=== PATIENT | female | born 1955 | race Caucasian/White ===

== ENCOUNTER → 2016-11-29 | Outpatient (CLI) | payer BC | LOC: LAB 14:26 | DX: E03.8 Other specified hypothyroidism (principal) | CPT/HCPCS: 36415; 84443 ==

== ENCOUNTER → 2017-01-23 | Outpatient (CLI) | payer BC ==
[2017-01-23 15:40] LABS: HEMOGLOBIN 13.7 gm/dl (12.3-15.3); RED BLOOD COUNT 4.73 M/UL (4.00-5.10); WHITE BLOOD COUNT 13.5 K/UL (4.5-11.0)
== END ==
LOC: LAB 15:20
PROVIDERS: Emergency Medicine
DX: E03.9 Hypothyroidism, unspecified (principal); E78.2 Mixed hyperlipidemia; E79.0 Hyperuricemia without signs of inflammatory arthritis and tophaceous disease; G44.89 Other headache syndrome; H61.22 Impacted cerumen, left ear; M25.562 Pain in left knee; R23.8 Other skin changes
CPT/HCPCS: 36415; 80053; 85027

== ENCOUNTER → 2020-08-30 | Outpatient (CLI) | payer BC ==
[~2020-08-30] MED LIST: BIOTIN1 M1 PO; ECOTRIN81 MG PO; K-DUR TAB 20 M20 MEQ PO; LIPITOR TAB 1010 MG PO; SYNTHROID25 MCG PO; VITAMIN D2000 UNIT PO; WOMEN'S DAILY1 EACH PO
[2020-09-01 12:14] LABS: CHOLESTEROL, TOTAL 172 mg/dL (100-199); HDL SIZE 9.1 nm (>=9.2); HDL-C 60 mg/dL (>39); HDL-P (TOTAL) 40.7 umol/L (>=30.5); LARGE HDL-P 7.8 umol/L (>=4.8); LARGE VLDL-P 9.4 nmol/L (<=2.7); LDL SIZE 20.3 nm (>20.5); LDL SIZE 20.3 nm (>=20.8); LDL-C 83 mg/dL (0-99); LDL-P 872 nmol/L (<1000); LP-IR SCORE 62 (<=45); SMALL LDL-P 501 nmol/L (<=527); TRIGLYCERIDES 175 mg/dL (0-149); VLDL SIZE 54.8 nm (<=46.6)
== END ==
LOC: LAB 07:42
PROVIDERS: Emergency Medicine
DX: E78.2 Mixed hyperlipidemia (principal); E55.9 Vitamin D deficiency, unspecified
CPT/HCPCS: 36415; 80053

== ENCOUNTER → 2021-04-25 | Outpatient (CLI) | payer BC ==
[2021-04-25 09:55] LABS: RED BLOOD COUNT 4.87 M/UL (4.00-5.10); WHITE BLOOD COUNT 17.2 K/UL (4.5-11.0)
== END ==
LOC: LAB 09:33
PROVIDERS: Emergency Medicine
DX: E78.2 Mixed hyperlipidemia (principal); R60.0 Localized edema; E03.8 Other specified hypothyroidism; D72.828 Other elevated white blood cell count
CPT/HCPCS: 36415; 80053; 80061; 84443; 85027

== ENCOUNTER → 2021-10-04 | Outpatient (CLI) | payer BC ==
[2021-10-04 08:57] LABS: RED BLOOD COUNT 4.71 M/UL (4.00-5.10)
[2021-10-05 08:15] LABS: ALBUMIN 4.1 g/dL (3.8-4.8); ALKALINE PHOSPHATASE 130 IU/L (44-121); ALT (SGPT) 13 IU/L (0-32); AST (SGOT) 19 IU/L (0-40); BILIRUBIN, DIRECT 0.14 mg/dL (0.00-0.40); BILIRUBIN, TOTAL 0.5 mg/dL (0.0-1.2); BUN 17 mg/dL (8-27); BUN/CREATININE RATIO 16 (12-28); CALCIUM, SERUM 9.8 mg/dL (8.7-10.3); CARBON DIOXIDE, TOTAL 22 mmol/L (20-29); CHLORIDE, SERUM 104 mmol/L (96-106); CHOLESTEROL, TOTAL 151 mg/dL (100-199); CREATININE, SERUM 1.07 mg/dL (0.57-1.00); GLUCOSE, SERUM 90 mg/dL (65-99); HDL CHOLESTEROL 51 mg/dL (>39); LDL CHOLESTEROL CALC 67 mg/dL (0-99); LDL/HDL RATIO 1.3 ratio (0.0-3.2); POTASSIUM, SERUM 4.3 mmol/L (3.5-5.2); PROTEIN, TOTAL 6.5 g/dL (6.0-8.5); SODIUM, SERUM 142 mmol/L (134-144); TRIGLYCERIDES 202 mg/dL (0-149); VITAMIN D, 25-HYDROXY 54.5 ng/mL (30.0-100.0)
[2021-10-05 16:29] LABS: WHITE BLOOD COUNT 17.3 K/UL (4.5-11.0)
== END ==
LOC: LAB 07:45
PROVIDERS: Internal Medicine
DX: E03.9 Hypothyroidism, unspecified (principal); E78.5 Hyperlipidemia, unspecified
CPT/HCPCS: 36415; 80048; 80061; 80076; 84443; 85025

== ENCOUNTER → 2022-01-25 | Outpatient (CLI) | payer BC | LOC: MRI 13:47 | DX: M25.551 Pain in right hip (principal); M19.011 Primary osteoarthritis, right shoulder | CPT/HCPCS: 73721 ==

== ENCOUNTER → 2022-03-22 | Outpatient (CLI) | payer BC ==
[2022-03-22 07:59] LABS: HEMOGLOBIN 12.7 gm/dl (12.3-15.3); RED BLOOD COUNT 4.7 M/UL (4.00-5.10)
== END ==
LOC: LAB 07:13
PROVIDERS: Internal Medicine
DX: E78.5 Hyperlipidemia, unspecified (principal)
CPT/HCPCS: 36415; 80048; 80061; 80076; 84443; 85025